=== PATIENT | male | born 1980 | race Caucasian/White ===

== ENCOUNTER 2017-10-28 16:50 | Emergency (ER) | payer SELFPAY ==
[~2017-10-28] VITALS: Ht 167.6 cm; Wt 75.0 kg
[2017-10-28 17:04] VITALS: Ht 167.6 cm; Wt 75.0 kg
[2017-10-28] MEDS ORDERED: AMOXICILLIN500 M1 PO (18:13)
[2017-10-28] MEDS ORDERED: TYLENOL W/CODEI1 TAB PO (18:13)
[2017-10-28 18:24] VITALS: BP 134/98
== END 2017-10-28 18:24 | disposition home or self-care (01) ==
LOC: D.ER 16:50
DX: K04.7 Periapical abscess without sinus (principal); K08.89 Other specified disorders of teeth and supporting structures